=== PATIENT | male | born 1955 | race Caucasian/White ===

== ENCOUNTER 2017-07-01 07:11 | Emergency (ER) | payer BC, OTHER ==
[2017-07-01 07:31] VITALS: TEMP 98.3; BMI 31.9
[2017-07-01] MEDS ORDERED: ACETAMINOPHEN 500 MG TABLET (FP) PO ONE (07:44)
--- NOTE | 2017-07-01 07:51 | PDOC ---
History of Present Illness - General Chief Complaint: Injury Stated Complaint: FALL Time Seen by Provider: 07/01/17 07:36 History Source: Patient Exam Limitations: No Limitations - History of Present Illness Initial Comments: 07/01/17 07:49 Patient is a 62-year-old male with past medical history of hypertension, who presents to the emergency department today after slipping on ice at approximately 6:30 this morning. Patient states he was walking to his car when he slipped and fell landing on the back of his head. Patient states he has a dull ache to the back of his head. Patient takes 81 mg of aspirin daily. Denies other blood thinner use. Patient denies loss of consciousness, neck pain, dizziness, lightheadedness, nausea, vomiting, and visual changes. 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 Past History - Travel Traveled outside of the country in the last 30 days: No Close contact w/someone who was outside of country & ill: No - Past Medical History Allergies/Adverse Reactions: Allergies Allergy/AdvReac Type Severity Reaction Status Date / Time No Known Allergies Allergy Verified 07/01/17 07:29 Home Medications: Ambulatory Orders Amlodipine Besylate [Norvasc -] 10 mg PO DAILY 12/31/15 Aspirin [ASA -] 81 mg PO DAILY 12/31/15 Potassium Chloride 20 meq PO DAILY 12/31/15 Simvastatin 10 mg PO DAILY 12/31/15 Atorvastatin Ca [Lipitor] 10 mg PO HS 07/01/17 COPD: No HTN: Yes Hypercholesterolemia: Yes - Suicide/Smoking/Psychosocial Hx Smoking History: Never smoked Have you smoked in the past 12 months: No Number of Cigarettes Smoked Daily: 0 Hx Alcohol Use: No Drug/Substance Use Hx: No Review of Systems - Review of Systems Able to Perform ROS?: Yes Comments:: 07/01/17 07:47 CONSTITUTIONAL: Absent: fever, chills, diaphoresis, generalized weakness, malaise, loss of appetite HEENT: Absent: rhinorrhea, nasal congestion, throat pain, throat swelling, difficulty swallowing, mouth swelling, ear pain, eye pain, visual Changes CARDIOVASCULAR: Absent: chest pain, loss of consciousness, palpitations, irregular heart rate, peripheral edema RESPIRATORY: Absent: cough, shortness of breath, dyspnea with exertion, orthopnea, wheezing, stridor, hemoptysis GASTROINTESTINAL: Absent: abdominal pain, abdominal distension, nausea, vomiting, diarrhea, constipation, melena, hematochezia GENITOURINARY: Absent: dysuria, frequency, urgency, hesitancy, hematuria, flank pain, genital pain MUSCULOSKELETAL: Absent: myalgia, arthralgia, joint swelling SKIN: Absent: rash, itching, pallor HEMATOLOGIC/IMMUNOLOGIC: Absent: easy bleeding, easy bruising, lymphadenopathy, frequent infections ENDOCRINE: Absent: unexplained weight gain, unexplained weight loss, heat intolerance, cold intolerance NEUROLOGIC: Present: headache s/p fall Absent: focal weakness or paresthesias, dizziness, unsteady gait, seizure, mental status changes, bladder or bowel incontinence PSYCHIATRIC: Absent: anxiety, depression, suicidal or homicidal ideation, hallucinations. Is the patient limited Romanian proficient: No *Physical Exam - Vital Signs Last Vital Signs Temp Pulse Resp BP Pulse Ox 98.3 F 74 18 145/78 97 07/01/17 07:28 07/01/17 07:28 07/01/17 07:28 07/01/17 07:28 07/01/17 07:28 - Physical Exam Comments: 07/01/17 07:48 07/01/17 07:45 GENERAL: Well developed, well nourished. Awake and alert, can recall events of the fall. No acute distress. Breathing easily HEENT: Normocephalic, atraumatic. TTP of the head to the R temporal and occipital regions. No step offs or crepitus felt. No kyle sign, raccoon sign. PERRLA, EOMI. No conjunctival pallor. Sclera are non-icteric. Moist mucous membranes. Oropharynx is clear. No hematympanum NECK: Supple. Full ROM. No JVD. Carotid pulses 2+ and symmetric, without bruits. No thyromegaly. No lymphadenopathy. CARDIOVASCULAR: Regular rate and rhythm. No murmurs, rubs, or gallops. Distal pulses are 2+ and symmetric. PULMONARY: No evidence of respiratory distress. Lungs clear to auscultation bilaterally. No wheezing, rales or rhonchi. ABDOMINAL: Soft. Non-tender. Non-distended. No rebound or guarding. No organomegaly. Normoactive bowel sounds. MUSCULOSKELETAL Normal range of motion at all joints. No bony deformities or tenderness. No CVA tenderness. EXTREMITIES: No cyanosis. No clubbing. No edema. No calf tenderness. SKIN: Warm and dry. Normal capillary refill. No rashes. No jaundice. NEUROLOGICAL: Alert, awake, appropriate. Cranial nerves 2-12 intact. No deficits to light touch and temperature in face, upper extremities and lower extremities. No motor deficits in the in face, upper extremities and lower extremities. Normoreflexic in the upper and lower extremities. Normal speech. Toes are down- going bilaterally. Gait is normal without ataxia. PSYCHIATRIC: Cooperative. Good eye contact. Appropriate mood and affect. ED Treatment Course - RADIOLOGY Radiology Studies Ordered: Category Date Time Status HEAD CT WITHOUT CONTRAST [CT] Stat CT Scan 07/01/17 07:44 Ordered Medical Decision Making - Medical Decision Making 07/01/17 07:48 Patient is a 62-year-old male past medical history hypertension who presents to the emergency department after a mechanical slip and fall on ice this morning. Patient is on aspirin at this time. Complaining of pain to the right side of his head. Denies neck and back pain. We will obtain CT scan at this time to rule out bleed or fracture. Tylenol for pain. Reevaluate 07/01/17 09:[address]: Mild volume loss. No gross evidence of a focal intracranial lesion or hemorrhage is seen. Correlate clinically to determine further follow-up. Mucosal hypertrophy in included portion of the right nasal cavity with prominent posterior margin of the right middle nasal turbinate. ENT evaluation is recommended to rule out a polyp. Head CT is negative at this time. Informed pt of results. Patient reports some symptom relief with Tylenol. We'll discharge home at this time. Pt. understands all d/c instructions and all questions were answered. *DC/Admit/Observation/Transfer Diagnosis at time of Disposition: Fall due to ice or snow Qualifiers: Encounter type: initial encounter Qualified Code(s): W00.9XXA - Unspecified fall due to ice and snow, initial encounter - Discharge Dispostion Disposition: HOME Condition at time of disposition: Good Admit: No - Referrals Referrals: Swapnil Cox MD [Staff Physician] - Abdulaziz Duong MD [Staff Physician] - - Patient Instructions Printed Discharge Instructions: DI for Closed Head Injury Additional Instructions: Your head CT was negative today for any bleeding or fractures of the head. Please follow-up with your primary care doctor this week. He may take ibuprofen as needed for pain. The head CT did show a possible polyp in your nose. Please follow-up with ENT, Dr. Cox. Her referrals been provided for you. Return to the emergency department if you have worsening headache, visual changes, nausea, vomiting, dizziness, lightheadedness, changes in the way walk, or any changes in your symptoms. - Post Discharge Activity Forms/Work/School Notes: Back to Work
[2017-07-01] MEDS ORDERED: ACETAMINOPHEN 325 MG TABLET (FP) ONE (08:23)
[2017-07-01 10:11] VITALS: BP 139/65; PULSE 70
== END 2017-07-01 10:11 | disposition home or self-care (01) ==
LOC: JER 07:11
DX: S09.8XXA Other specified injuries of head, initial encounter (principal); Z79.82 Long term (current) use of aspirin; W00.2XXA Other fall from one level to another due to ice and snow, initial encounter; Y93.89 Activity, other specified; Y92.480 Sidewalk as the place of occurrence of the external cause
CPT/HCPCS: 70450-TC; 99282-25

== ENCOUNTER 2018-08-23 19:43 | Emergency (ER) | payer BC, OTHER ==
--- NOTE | 2018-08-23 19:56 | PDOC ---
Rapid Medical Evaluation Time Seen by Provider: 08/23/18 19:55 Medical Evaluation: Allergies Allergy/AdvReac Type Severity Reaction Status Date / Time No Known Allergies Allergy Verified 07/01/17 07:29 08/23/18 19:55 I have performed a brief in-person evaluation of this patient. The patient presents with a chief complaint of: left sided chest pain intermittently x 1 week. Reports cold symptoms and low grade temperature and diarrhea this am that worsening the chest pain Pertinent physical exam findings: NAD even and unlabored breathing non tender chest I have ordered the following: ekg, labs ordered The patient will proceed to the ED for further evaluation. Discharge Disposition - Diagnosis Chest pain - Referrals - Patient Instructions - Post Discharge Activity
[2018-08-23 19:59] VITALS: BP 103/65; PULSE 90; TEMP 98.2; BMI 34.7
[2018-08-23 20:26] LABS: BASO % 0.2 % (0-2.0); EOS % 0.4 % (0-4.5); HEMATOCRIT 45.6 % (35.4-49); HEMOGLOBIN 15.9 GM/dL (11.7-16.9); LYMPH % 8.9 % (8-40); MCH 31.9 pg (25.7-33.7); MCHC 34.8 g/dl (32.0-35.9); MEAN CELL VOLUME 91.7 fl (80-96); MEAN PLT VOLUME 8.3 fl (7.5-11.1); MONO % 7.8 % (3.8-10.2); NEUT % 82.7 % (42.8-82.8); PLATELET COUNT 160 K/MM3 (134-434); RBC 4.98 M/mm3 (4.00-5.60); RDW 13.8 % (11.9-15.9); WHITE BLOOD COUNT 7.2 K/mm3 (4.0-10.0)
--- NOTE | 2018-08-23 21:20 | PDOC ---
History of Present Illness - General Chief Complaint: Chest Pain Stated Complaint: CHEST PAIN SOB Time Seen by Provider: 08/23/18 19:55 History Source: Patient - History of Present Illness Initial Comments: 08/23/18 63 year old male c/o chest discomfort, low grade temp, bodyache x 1 day. denies NVD, diaphoresis. patient has a history of hypertension, hyperlipidemia Past History - Past Medical History Allergies/Adverse Reactions: Allergies Allergy/AdvReac Type Severity Reaction Status Date / Time No Known Allergies Allergy Verified 08/23/18 19:59 Home Medications: Ambulatory Orders Amlodipine Besylate [Norvasc -] 10 mg PO DAILY 12/31/15 Aspirin [ASA -] 81 mg PO DAILY 12/31/15 Potassium Chloride 20 meq PO DAILY 12/31/15 Simvastatin 10 mg PO DAILY 12/31/15 Atorvastatin Ca [Lipitor] 10 mg PO HS 07/01/17 Albuterol Sulfate Inhaler - [Ventolin HFA Inhaler -] 1 - 2 inh PO QID PRN #1 inhaler 08/24/18 COPD: No HTN: Yes Hypercholesterolemia: Yes Psychiatric Problems: Yes (depression) - Suicide/Smoking/Psychosocial Hx Smoking History: Never smoked Have you smoked in the past 12 months: No Number of Cigarettes Smoked Daily: 0 Information on smoking cessation initiated: No Hx Alcohol Use: No Drug/Substance Use Hx: No Review of Systems - Review of Systems Able to Perform ROS?: Yes Is the patient limited Icelandic proficient: No Constitutional: Yes: Chills. No: Symptoms Reported, See HPI, Diaphoresis, Fever , Loss of Appetite, Malaise, Night Sweats, Weakness, Weight Stable, Unintentional Wgt. Loss, Unexplained wgt Loss, Other Cardiac (ROS): Yes: Chest Pain *Physical Exam - Vital Signs Last Vital Signs Temp Pulse Resp BP Pulse Ox 98.2 F 90 16 103/65 100 08/23/18 19:56 08/23/18 19:56 08/23/18 19:56 08/23/18 19:56 08/23/18 19:56 - Physical Exam General Appearance: Yes: Appropriately Dressed Respiratory/Chest: positive: Lungs Clear, Normal Breath Sounds Cardiovascular: positive: Regular Rhythm, Regular Rate Gastrointestinal/Abdominal: positive: Normal Bowel Sounds, Soft. negative: Tender Extremity: positive: Normal Capillary Refill, Normal Inspection, Normal Range of Motion Integumentary: positive: Normal Color, Dry, Warm Neurologic: positive: Fully Oriented, Alert, Normal Mood/Affect Heart Score/ECG Review - History History: Slightly suspicious - Electrocardiogram EKG: Normal - Age Age: 45-65 - Risk Factors Risk Factors Heart Score: Yes Hx Hypercholesterolemia, Yes Hx Hypertension Based on the list above the patient has:: 1-2 risk factors - Troponin Troponin: </= normal limit - Score Heart Score - Total: 2 - ECG Intrepretation Rhythm: Regular Rhythm Comment:: 08/24/18 01:31 NSR: 86 bpm Moderate Sedation - Procedure Monitoring Vital Signs: Procedure Monitoring Vital Signs Temperature 98.2 F 08/23/18 19:56 Pulse Rate 90 08/23/18 19:56 Respiratory Rate 16 08/23/18 19:56 Blood Pressure 103/65 08/23/18 19:56 O2 Sat by Pulse Oximetry (%) 100 08/23/18 19:56 ED Treatment Course - LABORATORY CBC & Chemistry Diagram: 08/23/18 20:13 08/23/18 20:13 - ADDITIONAL ORDERS Additional order review: Laboratory Results 08/23/18 20:13 Sodium 137 Potassium 3.7 Chloride 106 Carbon Dioxide 22 Anion Gap 9 BUN 18 Creatinine 1.1 Creat Clearance w eGFR > 60 Random Glucose 104 Calcium 8.1 L Magnesium 1.8 Total Bilirubin 2.0 H AST 25 ALT 45 Alkaline Phosphatase 49 Troponin I < 0.02 Total Protein 7.5 Albumin 3.8 08/23/18 20:13 RBC 4.98 MCV 91.7 MCHC 34.8 RDW 13.8 MPV 8.3 Neutrophils % 82.7 Lymphocytes % 8.9 Monocytes % 7.8 Eosinophils % 0.4 Basophils % 0.2 - RADIOLOGY Radiology Studies Ordered: Category Date Time Status CHEST PA & LAT [RAD] Stat Radiology 08/23/18 21:21 Taken *DC/Admit/Observation/Transfer Diagnosis at time of Disposition: Flu-like symptoms Chest pain Qualifiers: Chest pain type: unspecified Qualified Code(s): R07.9 - Chest pain, unspecified - Discharge Dispostion Disposition: HOME Condition at time of disposition: Fair - Prescriptions Prescriptions: Albuterol Sulfate Inhaler - [Ventolin HFA Inhaler -] 1 - 2 inh PO QID PRN #1 inhaler PRN Reason: Shortness Of Breath - Referrals - Patient Instructions Printed Discharge Instructions: DI for Chest Pain Additional Instructions: drink plenty of fluids you may take Tylenol for pain please follow up with your reconsignment clerk / pcp as soon as possible Additional Instructions: * Please call your personal physician to report your Emergency Department visit and to report your progress, if any. * If there is no improvement in symptoms in 2 days call your physician. * Return to the Emergency Department for any worsening symptoms. - Post Discharge Activity Forms/Work/School Notes: Back to Work
[2018-08-23 21:48] LABS: ALBUMIN 3.8 g/dl (3.4-5.0); ALK PHOS 49 U/L (45-117); ANION GAP 9 MMOL/L (8-16); BLOOD UREA NITROGEN 18 mg/dL (7-18); CALCIUM 8.1 mg/dL (8.5-10.1); CHLORIDE 106 mmol/L (98-107); CO2 22 mmol/L (21-32); CREATININE 1.1 mg/dL (0.55-1.3); GLUCOSE,RANDOM 104 mg/dL (74-106); MAGNESIUM 1.8 mg/dL (1.8-2.4); POTASSIUM 3.7 mmol/L (3.5-5.1); SGOT/AST 25 U/L (15-37); SGPT/ALT 45 U/L (13-61); SODIUM 137 mmol/L (136-145); TOT PROT 7.5 g/dl (6.4-8.2)
--- NOTE | 2018-08-23 21:48 | PDOC ---
*Physical Exam - Vital Signs Last Vital Signs Temp Pulse Resp BP Pulse Ox 98.2 F 90 16 103/65 100 08/23/18 19:56 08/23/18 19:56 08/23/18 19:56 08/23/18 19:56 08/23/18 19:56 ED Treatment Course - LABORATORY CBC & Chemistry Diagram: 08/23/18 20:13 08/23/18 20:13 - ADDITIONAL ORDERS Additional order review: Laboratory Results 08/23/18 20:13 Sodium 137 Potassium 3.7 Chloride 106 Carbon Dioxide 22 Anion Gap 9 BUN 18 Creatinine 1.1 Creat Clearance w eGFR > 60 Random Glucose 104 Calcium 8.1 L Magnesium 1.8 Total Bilirubin 2.0 H AST 25 ALT 45 Alkaline Phosphatase 49 Troponin I < 0.02 Total Protein 7.5 Albumin 3.8 08/23/18 20:13 RBC 4.98 MCV 91.7 MCHC 34.8 RDW 13.8 MPV 8.3 Neutrophils % 82.7 Lymphocytes % 8.9 Monocytes % 7.8 Eosinophils % 0.4 Basophils % 0.2 Medical Decision Making - Medical Decision Making 08/23/18 21:48 Patient seen by the advanced practice provider under my direct supervision. Ancillary testing reviewed as necessary. I agree with plan as outlined by the advanced practice provider. *DC/Admit/Observation/Transfer Diagnosis at time of Disposition: Chest pain - Discharge Dispostion Condition at time of disposition: Fair - Referrals - Patient Instructions - Post Discharge Activity
[2018-08-24] MEDS ORDERED: ALBUTEROL SO4 0.083% IH SOL 2.5 MG/3 ML VIAL.NEB. NEB ONE (01:19)
[2018-08-24] MEDS ORDERED: ALBUTEROL SO4 2.5/IPRATROPIUM 0.5 INH SOL 3 ML VIAL.NEB. NEB ONE (01:24)
[2018-08-24] MEDS ORDERED: ASPIRIN 81 MG CHEWABLE TABLETS PO ONE (01:34)
--- NOTE | 2018-08-24 17:16 | EKG ---
Test Reason : Blood Pressure : / mmHG Vent. Rate : 086 BPM Atrial Rate : 086 BPM P-R Int : 142 ms QRS Dur : 114 ms QT Int : 370 ms P-R-T Axes : 048 020 046 degrees QTc Int : 442 ms NORMAL SINUS RHYTHM NORMAL ECG NO PREVIOUS ECGS AVAILABLE Confirmed by MD JESUS, NICOLE ([id number]) on 08/24/2018 5:16:13 PM Referred By: Confirmed By:NICOLE LEE MD
== END 2018-08-24 03:37 | disposition home or self-care (01) ==
LOC: JER 19:43
PROC: 3E0F7GC Introduction of Other Therapeutic Substance into Respiratory Tract, Via Natural or Artificial Opening (ICD-10-PCS; principal; 2018-08-23)
DX: J11.1 Influenza due to unidentified influenza virus with other respiratory manifestations (principal); I10 Essential (primary) hypertension; E78.00 Pure hypercholesterolemia, unspecified; F32.9 Major depressive disorder, single episode, unspecified
CPT/HCPCS: 36415; 71046-TC-FY; 80053; 82550; 82553; 83735; 84484; 85025; 87804; 93005; 93010; 99282-25

== ENCOUNTER 2022-02-27 17:52 | Emergency (ER) | payer OTHER, BC ==
[2022-02-27 18:06] VITALS: BP 142/88; PULSE 83; RESP 16; TEMP 98.3; BMI 34.1
[2022-02-27] MEDS ORDERED: KETOROLAC TROMETHAMINE 30 MG/1 ML VIAL IVPUSH ONE (19:05)
[2022-02-27] MEDS ORDERED: PANTOPRAZOLE SODIUM 40 MG VIAL IVPUSH ONE (19:05)
[2022-02-27] MEDS ORDERED: SODIUM CHLORIDE 0.9% 500 ML INFUS.BAG IV ONE (19:08)
[2022-02-27] MEDS ORDERED: PANTOPRAZOLE SODIUM 40 MG VIAL ONE (19:51)
[2022-02-27] MEDS ORDERED: KETOROLAC TROMETHAMINE 30 MG/1 ML VIAL ONE (19:51)
[2022-02-27 20:00] LABS: BASO % 0.4 % (0-2.0); EOS % 0.3 % (0-4.5); HEMATOCRIT 42.8 % (35.4-49); HEMOGLOBIN 14.8 GM/dL (11.7-16.9); LYMPH % 9.6 % (8-40); MCH 31.2 pg (25.7-33.7); MCHC 34.5 g/dl (32.0-35.9); MEAN CELL VOLUME 90.4 fl (80-96); MEAN PLT VOLUME 7.7 fl (7.5-11.1); MONO % 8.2 % (3.8-10.2); NEUT % 81.5 % (42.8-82.8); PLATELET COUNT 202 10^3/uL (134-434); RBC 4.73 M/mm3 (4.00-5.60); RDW 14.1 % (11.9-15.9); WHITE BLOOD COUNT 10.4 K/mm3 (4.0-10.0)
[2022-02-27 20:17] LABS: CALCIUM 9.3 mg/dL (8.5-10.1)
[2022-02-27 20:18] LABS: BLOOD UREA NITROGEN 22.8 mg/dL (7-18)
[2022-02-27 20:21] LABS: CREATININE 1.4 mg/dL (0.55-1.3)
[2022-02-27 20:22] LABS: BILIRUBIN,TOTAL 1.6 mg/dL (0.2-1); TOT PROT 7.5 g/dl (6.4-8.2)
[2022-02-27 20:50] LABS: EPI CELLS 1 /uL (0-25.1); HYALINE CASTS 0 /uL (0-3.1); PH,URINE 5.5 (5.0-8.0); URINE APPEARANCE CLEAR; URINE BACTERIA 3 /uL (0-1359); URINE BILIRUBIN NEGATIVE (NEGATIVE); URINE COLOR YELLOW; URINE GLUCOSE (UA) NEGATIVE (NEGATIVE); URINE KETONE TRACE (NEGATIVE); URINE LEUK ESTERASE NEGATIVE (NEGATIVE); URINE NITRITE NEGATIVE (NEGATIVE); URINE PROTEIN NEGATIVE (NEGATIVE); URINE RBC 7 /uL (0-23.9); URINE UROBILINOGEN 0.2 mg/dL (0.2-1.0); URINE WBC 4 /uL (0-25.8)
== END 2022-02-28 02:01 | disposition home or self-care (01) ==
LOC: JER 17:52
PROC: 3E033GC Introduction of Other Therapeutic Substance into Peripheral Vein, Percutaneous Approach (ICD-10-PCS; principal; 2022-02-27)
DX: R10.32 Left lower quadrant pain (principal)
CPT/HCPCS: 36415; 74177-TC; 80053; 81003; 83690; 85025; 87086; 99285-25

== ENCOUNTER 2022-08-01 11:04 | Emergency (ER) | payer OTHER, BC ==
[2022-08-01 11:19] VITALS: BMI 36.1
[2022-08-01] MEDS ORDERED: KETOROLAC TROMETHAMINE 15 MG/ML VIAL IVPUSH ONE (11:45)
[2022-08-01] MEDS ORDERED: SODIUM CHLORIDE 0.9% 500 ML INFUS.BAG IV ONE (11:45)
[2022-08-01] MEDS ORDERED: KETOROLAC TROMETHAMINE 15 MG/ML VIAL ONE (11:56)
[2022-08-01] MEDS ORDERED: ONDANSETRON 4 MG/2 ML VIAL IVPUSH ONE (11:58)
[2022-08-01] MEDS ORDERED: ONDANSETRON 4 MG/2 ML VIAL ONE (12:00)
[2022-08-01 12:21] LABS: BASO % 0.7 % (0-2.0); EOS % 1.3 % (0-4.5); HEMATOCRIT 41.7 % (35.4-49); HEMOGLOBIN 14.6 GM/dL (11.7-16.9); LYMPH % 15.4 % (8-40); MCH 31.4 pg (25.7-33.7); MEAN CELL VOLUME 89.7 fl (80-96); MEAN PLT VOLUME 7.8 fl (7.5-11.1); MONO % 6.9 % (3.8-10.2); NEUT % 75.7 % (42.8-82.8); PLATELET COUNT 195 10^3/uL (134-434); RBC 4.65 M/mm3 (4.00-5.60); RDW 13.9 % (11.9-15.9); WHITE BLOOD COUNT 8.7 K/mm3 (4.0-10.0)
[2022-08-01 12:27] LABS: INR 1.08 (0.83-1.09); PROTHROMBIN TIME (PATIENT) 12.5 SEC (9.7-13.0)
[2022-08-01 12:29] LABS: ACTIVATED PTT 32.6 SECONDS (25.2-36.5)
[2022-08-01 12:41] LABS: BLOOD UREA NITROGEN 18.6 mg/dL (7-18); CALCIUM 9.3 mg/dL (8.5-10.1)
[2022-08-01 12:44] LABS: CREATININE 1.1 mg/dL (0.55-1.3)
[2022-08-01 12:46] LABS: BILIRUBIN,TOTAL 1.3 mg/dL (0.2-1); TOT PROT 7.4 g/dl (6.4-8.2)
[2022-08-01 13:39] LABS: EPI CELLS 1 /uL (0-25.1); HYALINE CASTS 0 /uL (0-3.1); PH,URINE 5.5 (5.0-8.0); URINE APPEARANCE CLEAR; URINE BACTERIA 0 /uL (0-1359); URINE BILIRUBIN NEGATIVE (NEGATIVE); URINE COLOR YELLOW; URINE GLUCOSE (UA) NEGATIVE (NEGATIVE); URINE KETONE NEGATIVE (NEGATIVE); URINE LEUK ESTERASE NEGATIVE (NEGATIVE); URINE NITRITE NEGATIVE (NEGATIVE); URINE PROTEIN 2+ (NEGATIVE); URINE RBC 192 /uL (0-23.9); URINE UROBILINOGEN 0.2 mg/dL (0.2-1.0); URINE WBC 3 /uL (0-25.8)
[2022-08-01 14:18] VITALS: BP 140/81; PULSE 68; RESP 16; TEMP 97.1
== END 2022-08-01 14:19 | disposition home or self-care (01) ==
LOC: JER 11:04
PROC: 3E0333Z Introduction of Anti-inflammatory into Peripheral Vein, Percutaneous Approach (ICD-10-PCS; principal; 2022-08-01)
PROC: 3E033GC Introduction of Other Therapeutic Substance into Peripheral Vein, Percutaneous Approach (ICD-10-PCS; 2022-08-01)
DX: N20.0 Calculus of kidney (principal)
CPT/HCPCS: 36415; 74176-TC; 80053; 81003; 83690; 85025; 85610; 85730; 87086; 99285-25

== ENCOUNTER 2024-02-23 20:08 | Emergency (ER) | payer OTHER, BC ==
[2024-02-23 20:33] VITALS: BP 124/82; PULSE 70; RESP 15; TEMP 98.3; BMI 32.4
== END 2024-02-23 21:12 | disposition home or self-care (01) ==
LOC: JER 20:08
DX: M79.662 Pain in left lower leg (principal); X50.0XXA Overexertion from strenuous movement or load, initial encounter
CPT/HCPCS: 99282-25